=== PATIENT | male | born 1980 | race Caucasian/White ===

== ENCOUNTER 2022-10-18 06:10 | Observation (INO) ==
--- NOTE | 2022-10-11 15:05 | PAT Medication Instructions ---
Medication Instructions Date of Service October 11, 2022 Home Medications amlodipine 10 mg tablet 10 mg PO QAM empagliflozin 25 mg tablet (Jardiance) 25 mg PO QAM glipizide 10 mg tablet, extended release 24 hr 10 mg PO QAM losartan 50 mg tablet 50 mg PO QAM oxycodone-acetaminophen 5 mg-325 mg tablet (Percocet) 1 tab PO Q4H PRN Pain DO NOT take the morning of surgery glipizide 10 mg tablet, extended release 24 hr 10 mg PO QAM losartan 50 mg tablet 50 mg PO QAM Take morning of surgery With a small sip of water, OTHERWISE NOTHING TO EAT OR DRINK AFTER MIDNIGHT: amlodipine 10 mg tablet 10 mg PO QAM oxycodone-acetaminophen 5 mg-325 mg tablet (Percocet) 1 tab PO Q4H PRN Pain (if needed) Take evening before surgery oxycodone-acetaminophen 5 mg-325 mg tablet (Percocet) 1 tab PO Q4H PRN Pain (if needed) STOP taking 3 days before surgery empagliflozin 25 mg tablet (Jardiance) 25 mg PO QAM Other Notes If you have any questions please call us at [phone] or [phone] or [phone] or [phone]
--- NOTE | 2022-10-12 15:24 | Anesthesiology Consultation ---
Date of Service October 12, 2022 Assessment & Plan (1) Encounter for pre-operative examination: - COVID screening: Per assessment on 10/12: No known COVID-19 positive contacts or current COVID-19 related symptoms. Travel screen negative. Patient vaccinated. At surgeon discretion if preop Covid testing being done. - Check [facility] AM DOS Chart Review Chart Review: Acceptable Risk for Surgery and Patient seen in Pre Admission Testing Teaching & Discussion Pre-Anesthesia Teaching/Discussion Notes: Instructed NPO after midnight before surgery,except medications with 15 cc of water. Medication instructions provided according to the PAT guidelines. History Surgery Operation Date: 10/18/22 13:40 Proposed Procedures p C5-C7 Anterior Cervical Discectomy and Fusion, Spinal Cord Monitoring - Kevin Aguilar DO Height/Weight Height: 5 ft 11 in Weight: 101.7 kg Allergies Allergy/AdvReac Type Severity Reaction Status Date / Time Penicillins Allergy Hives Verified 10/11/22 13:29 Medications Home Medications Medication Instructions Recorded Confirmed Last Taken amlodipine 10 mg tablet 10 mg PO QAM 10/11/22 10/11/22 Unknown empagliflozin 25 mg tablet 25 mg PO QAM 10/11/22 10/11/22 Unknown (Jardiance) glipizide 10 mg tablet, extended 10 mg PO QAM 10/11/22 10/11/22 Unknown release 24 hr losartan 50 mg tablet 50 mg PO QAM 10/11/22 10/11/22 Unknown oxycodone-acetaminophen 5 mg-325 1 tab PO Q4H PRN Pain 10/11/22 10/11/22 Unknown mg tablet (Percocet) Past Medical History Medical History Diabetes mellitus, type 2 History of COVID-19 Most recent 07/2021; headache, fatigue > resolved Hx MRSA infection 2019 (dx PH junior, found in ear,) tx w/abx Hx of pancreatitis 07/2022, felt reaction to medication, no issues since Hypertension Exercise / Class Metabolic Activity II 4-5 Yardwork/Stairs/Walk up hill Past Surgical History Surgical History History of esophagogastroduodenoscopy (EGD) Hx laparoscopic cholecystectomy Hx of colonoscopy Hx of wisdom tooth extraction Past Anesthesia History No Hx of Anesthesia Complications and No Family Hx of Anesthesia Complications History of PONV No Hx of PONV and No Hx of Motion Sickness Social History Smoking Status: Current every day smoker tobacco type: cigarettes Smoking cigarettes per day: 10-12 cigs/day Do You Dip or Chew Tobacco: No Hx Alcohol Use: Yes alcohol intake frequency: holidays/special occasions only Hx Substance Use: No substance use type: does not use Review of Systems Patient denies chest pain, shortness of breath, dyspnea on exertion, fever, chills, cough, wheezing, palpitations. Physical Exam Vital Signs VITALS BP 130/88 P 79 TEMP 98.2 SP02 95%RA RESP 18 PHYSICAL Full cervical extension range of motion. Full TMJ range of motion. TMD 3 finger breaths Mallampati Score 3 Dentition: missing sides Lungs: clear throughout to auscultation Cardiac: regular rate and rhythm, no murmurs noted Spine: normal Carotid arteries: negative bruit Extremities: no edema Lab Results Anesthesia Preop Results Results Anesthesia Widget: WBC 11.51 K/ul (4.8-10.8) H 10/12/22 Hgb 17.8 g/dl (14.0-18.0) 10/12/22 Hct 49.8 % (40.1-51.0) 10/12/22 Plt 238 K/uL (130-400) 10/12/22 Na 135 mmol/L (136-145) L 10/12/22 K 3.5 mmol/L (3.5-5.1) 10/12/22 Cl 102 mmol/L (98-107) 10/12/22 CO2 26 mmol/L (21-32) 10/12/22 BUN 12 mg/dl (6-23) 10/12/22 Creat 0.81 mg/dl (0.6-1.4) 10/12/22 Glucose Level 89 mg/dl (70-99(Fasting)) 10/12/22 PT 10.3 Seconds (9.0-12.0) 10/12/22 PTT 30.1 Seconds (21.0-31.0) 10/12/22 INR 1.0 (0.9-1.1) 10/12/22 HA1c 7.9 % (4.5-5.6) H 10/12/22 Urine Color Yellow 10/12/22 Urine Appearance Clear (Clear) 10/12/22 Urine pH 6.5 (4.5-7.5) 10/12/22 Urine Specific [place] 1.029 (1.000-1.030) 10/12/22 Urine Protein Negative (Negative) 10/12/22 Urine Glucose (UA) 3+ (Negative) H 10/12/22 Urine Ketones Negative (Negative) 10/12/22 Urine Blood Negative (Negative) 10/12/22 Urine Nitrite Negative (Negative) 10/12/22 Urine Bilirubin Negative (Negative) 10/12/22 Urine Urobilinogen Negative (Negative) 10/12/22 Urine Leukocyte Esterase Negative (Negative) 10/12/22 Blood Type A Positive 10/12/22 Antibody Screen NEGATIVE 10/12/22 Testing Laboratory Results Surgeon's office made aware of elevated WBC/A1C* Electrocardiogram Date: 07/21/22 SR at 73bpm. Possible LAE. Chest X-Ray Date: 10/13/22 Findings: + NAD COVID-19 Risk Screen Screening Information COVID-19 Screen Date: 10/12/22 Exposure 21 Days Family/Household +COVID Last 21 Days: No Exposure 10 Days Any COVID Exposure Last 10 Days: No Symptoms Last 10 Days Experienced COVID Sx Last 10 Days: No + COVID 0-90 Days COVID + in Last 0-90 Days: No
[~2022-10-18 06:10] MED LIST: ACETAMINOPHEN 500 MG TAB PO SCH; CLINDAMYCIN/D5W 900 MG/50 ML BAG IV SCH; CeleBREX 200 MG CAP PO SCH; GABAPENTIN 900 MG DOSE PO SCH; LR 15ML/HR IV SCH
[2022-10-18] MEDS ORDERED: ceFAZolin 330 MG/ML 1 GM VIAL ONE (07:03)
[2022-10-18] MEDS ORDERED: ROCURONIUM BROMIDE 10 MG/ML 5 ML VIAL IV ONE (07:11)
[2022-10-18] MEDS ORDERED: fentaNYL citrate 100 MCG/2 ML VIAL ONE (07:11)
[2022-10-18] MEDS ORDERED: GLYCOPYRROLATE 0.2 MG/ML VIAL ONE (07:11)
[2022-10-18] MEDS ORDERED: LIDOCAINE 2% MPF LOCAL 5 ML VIAL INFIL ONE (07:11)
[2022-10-18] MEDS ORDERED: MIDAZOLAM HCL 1 MG/ML 2ML VIAL ONE (07:11)
[2022-10-18] MEDS ORDERED: DEXAMETHASONE SOD INJ 4 MG/ML VIAL ONE (07:11)
[2022-10-18] MEDS ORDERED: SUCCINYLCHOLINE CHLORIDE 20 MG/ML 10 ML VIAL IV ONE (07:11)
[2022-10-18] MEDS ORDERED: PROPOFOL IV EMULSION 10 MG/ML 20 ML VIAL IV ONE (07:11)
[2022-10-18] MEDS ORDERED: NEOSTIGMINE METHYLSULFATE 1 MG/ML 10ML VIAL ONE (07:11)
[2022-10-18] MEDS ORDERED: ONDANSETRON INJ 2 MG/ML 2 ML VIAL ONE ×2 (07:11→08:57)
--- NOTE | 2022-10-18 07:34 | History & Physical Bridge Note ---
Date of Service October 18, 2022 History & Physical Bridge Note I have examined the patient, reviewed the History & Physical and in the interval since the performance of the History & Physical I have noted the following changes of clinical significance: no changes noted
--- NOTE | 2022-10-18 07:35 | History & Physical Report ---
Date of Service October 18, 2022 Assessment & Plan (1) Cervical stenosis of spinal canal: Plan: C5-C7 anterior cervical discectomy and fusion History of Present Illness Chief Complaint: Neck and arm pain Primary Care Provider: Will Springer This is a 41-year-old male presents with chronic persistent neck and arm pain after failed course of nonoperative care is here for surgical invention. Allergies Allergy/AdvReac Type Severity Reaction Status Date / Time Penicillins Allergy Hives Verified 10/18/22 06:28 Home Medications Medication Instructions Recorded Confirmed Type amlodipine 10 mg tablet 10 mg PO QAM 10/11/22 10/18/22 History empagliflozin 25 mg tablet 25 mg PO QAM 10/11/22 10/18/22 History (Jardiance) glipizide 10 mg tablet, extended 10 mg PO QAM 10/11/22 10/18/22 History release 24 hr losartan 50 mg tablet 50 mg PO QAM 10/11/22 10/18/22 History oxycodone-acetaminophen 5 mg-325 1 tab PO Q4H PRN Pain 10/11/22 10/18/22 History mg tablet (Percocet) Past Med/Surg History Medical History Diabetes mellitus, type 2 History of COVID-19 Most recent 07/2021; headache, fatigue > resolved Hx MRSA infection 2019 (dx PH junior, found in ear,) tx w/abx Hx of pancreatitis 07/2022, felt reaction to medication, no issues since Hypertension Surgical History History of esophagogastroduodenoscopy (EGD) Hx laparoscopic cholecystectomy Hx of colonoscopy Hx of wisdom tooth extraction Social History Smoking Status: Current every day smoker Cigarettes Per Day: 10-12; Second Hand Exposure: No; Do You Dip or Chew Tobacco: No; Tobacco Cessation Education Requested by Patient: No Hx Alcohol Use: Yes Hx Substance Use: No Preferred Language: [place]orese Communication Ability: Effective Band Shover Required: No Beliefs That Will Affect Care: None Current Living Situation: Significant Other Other Information That Helps Us Care for You: No Feels Safe at Home: Yes Safety Concerns: Feels Safe At This Time Assistive Devices: None Physical Exam Physical Exam: Patient is alert and oriented Heart regular rhythm Lungs clear Results & Data Results & Data ([facility]) Vital Signs (Past 12 Hours) Vital Signs Temp Pulse Resp BP Pulse Ox O2 Del Method 10/18/22 06:35 36.5 C 97 H 20 149/105 H 98 Room Air
[2022-10-18] MEDS ORDERED: PROMETHAZINE HCL 12.5 MG in SODIUM CHLORIDE 0.9% 50 ML IV PRN (08:35)
[2022-10-18] MEDS ORDERED: ePHEDrine sulfate 50 MG/ML AMP IV PRN (08:35)
[2022-10-18] MEDS ORDERED: ONDANSETRON INJ 2 MG/ML 2 ML VIAL IV PRN (08:35)
[2022-10-18] MEDS ORDERED: ATROPINE SULFATE 0.1 MG/ML 10ML SYR IV PRN (08:35)
[2022-10-18] MEDS ORDERED: FLOSEAL HEMOSTATIC MATRIX 10ML TOP ONE (09:04)
--- NOTE | 2022-10-18 09:17 | Operative Report ---
Post Operative Report Pre & Post Diagnosis Operation Date: 10/18/22 07:45 Pre-Op Diagnosis: Cervical spinal stenosis with radiculopathy Post-Op Diagnosis: Same I identified the patient and participated in the time-out.: Yes Procedure Operation Date: 10/18/22 07:45 Actual Procedures #1 anterior cervical discectomy with bilateral foraminotomies C5-C6 C6-C7. #2 anterior cervical arthrodesis C5-C6 C6-C7. #3 placement of Spira 9 mm cage filled I factor at C5-C6 C6-C7. #4 application of K2 M plate and screws from C5-C7. Surgeon Kevin Aguilar, Water Registrar Fallon Santiago Estimated Blood Loss 10 Findings Consistent with Post-Op Diagnosis Specimens None Indications This is a 41-year-old male who presents to the emergency diagnosis of failed extensive course of nonoperative care is here for surgical invention. Description of Procedure Patient met with identified informed consent obtained. Patient was then taken to the operative suite underwent a patient placed in a supine position the Shivam table with head Mcneal head greenskeeper. All bony prominences well-padded eyes inspected to ensure no external pressure placed upon them. This point the anterior cervical spine was prepped and draped no sterile fashion. The assistance of fluoroscopy defy the C6 vertebral body and a transverse incision was placed on the right anterior aspect of the cervical spinal lines region. Blunt dissection with the assistance of bipolar cautery performed down to and exposing the anterior cervical spine from C5-C7. Self-retaining retractors placed. Then performed a complete discectomy of C5-C6 out to the uncovertebral's bilaterally. Adel distracting pins utilized to assist in v isualization. Removed all posterior annular fibers longitudinal ligament bilateral foraminotomies performed and a 9 mm spiral cage filled with I factor tapped in position. I then proceeded to C6-C7. Again complete discectomy performed out to the uncovertebral's bilaterally. Adel distracting pins again utilized. Removed all posterior fibers longitudinal ligament bilateral foraminotomy performed in the 9 mm spiral cage with I factor tapped in position. Distracting apparatus was removed all anterior osteophytes burred to smooth cortical surface and a K2 M plate and screws applied with the assistance of fluoroscopy. The incision was then copiously irrigated explored to ensure no damage to surrounding structures remaining bleeding. 10 round DEEP drain inserted. The incision was then closed with 2 Vicryl in the fascia and 4 Monocryl for fascial closure. Steri-Strip Steri-Strip placed. Patient awakened and taken to PACU in stable condition. Please note spinal cord monitoring was u tilized at the procedure no changes noted. Lastly spinal cord monitoring was utilized at the procedure no changes noted. Fallon Santiago was present at the entire procedure and while the patient positioning complex portions of the surgery and fascial closure. I attest to the content of the Intraoperative Record and any orders documented therein. Any exceptions are noted below.
--- NOTE | 2022-10-18 09:30 | Fluoroscopy Report ---
FL cervical 2-3V CLINICAL HISTORY: ACDF C5-7 COMPARISON STUDY: None. FLUOROSCOPY TIME: 15 seconds. FLUOROSCOPIC IMAGES: 3 FINDINGS: Fluoroscopy was provided during C5-C7 anterior discectomy and fusion. The hardware is intac t. Endotracheal tube is partially imaged. Surgical drain is in place. IMPRESSION: Fluoroscopy provided during C5-C7 anterior discectomy and fusion. ACT 112: Negative or not required by law. Electronically signed by: Pierre Jj M.D. 10/18/2022 9:29 AM
[2022-10-18] MEDS: fentaNYL citrate 100 MCG/2 ML VIAL IV PRN ×4 (09:38→10:00)
[2022-10-18] MEDS: HYDROmorphone INJ 2 MG/ML SYR/VIAL IV PRN ×2 (10:21→10:26)
[2022-10-18] MEDS ORDERED: dexAMETHasone 8 MG in SYRINGE 0 ML IV PRN (11:03)
[2022-10-18] MEDS ORDERED: PHARMACY GLYCEMIC MGMT CONSULT PRN (11:03)
[2022-10-18] MEDS ORDERED: HYDROmorphone INJ 0.5 MG/0.5 ML SYR IV PRN (11:03)
[2022-10-18] MEDS ORDERED: traMADol HCL 50 MG TABLET PO PRN ×2 (11:03)
[2022-10-18] MEDS ORDERED: RACEPINEPHRINE 2.25% NEBU SOLN 0.5 ML VIAL INH PRN (11:03)
[2022-10-18] MEDS ORDERED: FLUARIX QUADRIVALENT 0.5 ML SYR IM ONE (11:10)
--- NOTE | 2022-10-18 11:25 | Anesthesiology Progress Note ---
Date of Service October 18, 2022 Anesthesia Post Procedure Vital Signs Vital Signs: Temp Pulse Pulse Resp BP Pulse Ox O2 Del Method 10/18/22 11:15 37 C 76 16 147/85 H 95 Nasal Cannula 10/18/22 11:10 76 18 95 Nasal Cannula 10/18/22 11:00 37 C 83 16 130/84 94 Nasal Cannula 10/18/22 10:45 36.2 C L 67 12 136/94 94 Nasal Cannula 10/18/22 10:35 36.2 C L 70 12 124/80 94 Nasal Cannula 10/18/22 10:25 76 12 167/99 H 94 Nasal Cannula 10/18/22 10:15 36.4 C L 80 14 145/105 H 94 Nasal Cannula 10/18/22 10:05 78 20 137/103 H 93 Nasal Cannula 10/18/22 09:55 81 14 137/92 95 Oxymask 10/18/22 09:45 81 17 163/116 H 94 Oxymask 10/18/22 09:35 89 18 157/106 H 95 Oxymask 10/18/22 09:25 36.2 C L 96 H 18 150/100 H 94 Oxymask 10/18/22 06:35 36.5 C 97 H 20 149/105 H 98 Room Air O2 Flow Rate 10/18/22 11:15 10/18/22 11:10 2 10/18/22 11:00 2 10/18/22 10:45 2 10/18/22 10:35 2 10/18/22 10:25 2 10/18/22 10:15 2 10/18/22 10:05 2 10/18/22 09:55 6 10/18/22 09:45 6 10/18/22 09:35 6 10/18/22 09:25 6 10/18/22 06:35 Pain Intensity Posterior Neck: Pain Intensity: 6 Neck: Pain Intensity: 5 Transfer of Care Handoff Completed per policy Notes Mental Status: alert / awake / arousable and participated in evaluation Patient Amnestic to Procedure: Yes Nausea / Vomiting: adequately controlled Pain: adequately controlled Airway Patency, RR, SpO2: stable & adequate BP & HR: stable & adequate Hydration State: stable & adequate Anesthetic Complications: no major complications apparent
[2022-10-18] MEDS ORDERED: DEXTROSE 50% 50 ML SYRINGE IV PRN (11:55)
[2022-10-18] MEDS ORDERED: GLUCOSE 10 TAB/TUBE PO PRN (11:55)
[2022-10-18] MEDS ORDERED: GLUCAGON FOR INJ 1 MG VIAL SQ PRN (11:55)
[2022-10-18] MEDS ORDERED: GLUCOSE 40% GEL 15 GM TUBE PO PRN (11:55)
[2022-10-18] MEDS ORDERED: CARBOHYDRATES FOR HYPOGLYCEMIA PO PRN (11:55)
[2022-10-18] MEDS ORDERED: POLYETHYLENE (MIRALAX) 17 GM PACK PO PRN (11:57)
[2022-10-18] MEDS ORDERED: DOCUSATE SODIUM 100 MG CAP PO PRN (11:57)
--- NOTE | 2022-10-18 12:22 | Hospitalist Consultation ---
Date of Consultation October 18, 2022 Assessment & Plan (1) Cervical stenosis of spinal canal: POD #0 - ACDF C5-C7 by Dr. Aguilar - Pain control, DVT prophylaxis, and PT/OT per primary team - Labs in AM - Crackles at right base during exam this afternoon - discussed with pt the importance of using the incentive spirometer and reviewed appropriate use (2) Diabetes mellitus, type 2: Hold oral diabetic meds while admitted - BS[facility] ACHS - Recommend diabetic diet once advanced - Insulin sliding scale and basal (3) Hypertension: Continue outpatient meds Plan Pt seen and reviewed with collaborating physician, Dr. Bahena. Plane of care discussed and as outlined above. Thank you for this consultation. We will continue to follow the patient with you. [facility] team is available 30/05 via [employer]. Please don't hesitate to reach out with questions. Luna Alcantara PA-C Supervising Physician Co-Signing Physician Notes Patient is a 41-year-old male with history of diabetes mellitus, hypertension and other medical problems was consulted for postop medical management after having anterior cervical discectomy with bilateral foraminotomies, arthrodesis for cervical spinal stenosis with radiculopathy by Dr. Aguilar. Patient is doing well postoperatively. He denies any dysphagia, odynophagia, chest pain, shortness of breath, dizziness, nausea, abdominal pain. Pain at surgical site is controlled. On exam patient is well-built and nourished, no apparent distress, normocephalic atraumatic, EOMI, neck:+ Neck collar, drain, lungs are clear to auscultation, normal breath sounds, S1-S2, no murmur, no pedal edema, abdomen soft, nontender, normal bowel sounds, alert, awake, oriented, grossly no focal deficits. Pain control, activity, DVT prophylaxis and wound care as per primary team. Continue insulin while hospitalized for management of diabetes mellitus. Expectations have high blood glucose levels given steroid use. Monitor blood pressure and continue home antihypertensive. Monitor for postop anemia. Bowel regimen to prevent constipation. I personally reviewed the record. Patient is interviewed and examined at bedside. Patient's care is coordinated with Joelle Alcantara PA-C. Please refer to the documentation above for details of patient's presentation and for discussion of other issues. History of Present Illness Reason for Consultation: Post-operative Medical Management Requesting Physician: Dr. Kevin Aguilar Attending Physician: Kevin Aguilar, DO History of Present Illness This is a 41 y/o male with a PMH of HTN, DM2, medication-induced pancreatitis, and cervical spinal stenosis who underwent ACDF of C5-C7 today by Dr. Aguilar. We have been consulted to assist with post-operative medical management. Currently, pt's only complaint is significant post-operative pain, feels similar to pre-op pain but more severe. Denies numbness or tingling in hands and feet. Able to move UE and LE without issue. Throat feels dry but no pain or dysphagia. Denies chest pain, dyspnea, palpitations, N/V/D, visual changes. He does not routinely check his blood sugars at home but reports that he can tell when they are high (>200). No recent marked elevations. He did have an episode of pancreatitis earlier this fall related to a diabetic medication, which has since been discontinued. Allergies Allergy/AdvReac Type Severity Reaction Status Date / Time Penicillins Allergy Hives Verified 10/18/22 06:28 Home Medications Medication Instructions Recorded Confirmed Type amlodipine 10 mg tablet 10 mg PO QAM 10/11/22 10/18/22 History empagliflozin 25 mg tablet 25 mg PO QAM 10/11/22 10/18/22 History (Jardiance) glipizide 10 mg tablet, extended 10 mg PO QAM 10/11/22 10/18/22 History release 24 hr losartan 50 mg tablet 50 mg PO QAM 10/11/22 10/18/22 History oxycodone-acetaminophen 5 mg-325 1 tab PO Q4H PRN Pain 10/11/22 10/18/22 History mg tablet (Percocet) Patient History Medical History (Updated 10/18/22 @ 12:50 by Joelle Alcantara PA-C) Diabetes mellitus, type 2 History of COVID-19 Most recent 07/2021; headache, fatigue > resolved Hx MRSA infection 2019 (dx PH junior, found in ear,) tx w/abx Hx of pancreatitis 07/2022, felt reaction to medication, no issues since Hypertension Surgical History History of esophagogastroduodenoscopy (EGD) Hx laparoscopic cholecystectomy Hx of colonoscopy Hx of wisdom tooth extraction Family History Denies family history of Anesthesia complication Social History Smoking Status: Current every day smoker Cigarettes Per Day: 10-12; Second Hand Exposure: No; Do You Dip or Chew Tobacco: No; Tobacco Cessation Education Requested by Patient: No Hx Alcohol Use: Yes Hx Substance Use: No Preferred Language: Portuguese Communication Ability: Effective Hearing Examiner Required: No Beliefs That Will Affect Care: None Current Living Situation: Significant Other Other Information That Helps Us Care for You: No Feels Safe at Home: Yes Safety Concerns: Feels Safe At This Time Assistive Devices: None Review of Systems Review of Systems: All systems reviewed & are unremarkable except as noted in HPI & below Constitutional: no fever and no chills Eyes: no diplopia and no worsening vision Ear, Nose, Mouth, Throat: no sore throat and no dysphagia Respiratory: no cough and no dyspnea Cardiovascular: no chest pain, no palpitations and no syncope Gastrointestinal: no abdominal pain, no nausea, no vomiting and no diarrhea/loose stools Genitourinary: no hematuria Musculoskeletal: + neck pain Integumentary: no rash and no yellowing of the skin Neurologic: no tingling and no numbness Physical Exam Constitutional: well developed and well nourished; no acute distress Eyes: + anicteric sclerae Neck: hard plastic cervical collar in place Dressing with sanguinous drainage, drain in place Respiratory: no respiratory distress and no labored breathing Auscultation: + crackles (at right base - otherwise clear) Cardiovascular: Rate/Rhythm: regular rate and regular rhythm Vessels: dorsalis pedis pulses present and radial pulses present Extremities: no pedal edema Gastrointestinal (Abdomen): Inspection/Auscultation: normal bowel sounds; abdomen not distended Percussion/Palpation: abdomen soft; abdomen nontender Musculoskeletal: Extremities: no muscle atrophy, no cyanosis and no clubbing Skin: no jaundice Neurologic: moves all extremities; no focal motor deficits and not confused Psychiatric: A+Ox3, euthymic affect Results & Data Results & Data ([facility]) Vital Signs (Past 12 Hours) Vital Signs Temp Pulse Pulse Resp BP Pulse Ox O2 Del Method 10/18/22 12:00 36.5 C 77 16 143/92 H 97 Nasal Cannula 10/18/22 11:31 36.9 C 89 16 137/83 95 Nasal Cannula 10/18/22 11:15 37 C 76 16 147/85 H 95 Nasal Cannula 10/18/22 11:10 76 18 95 Nasal Cannula 10/18/22 11:00 37 C 83 16 130/84 94 Nasal Cannula 10/18/22 10:45 36.2 C L 67 12 136/94 94 Nasal Cannula 10/18/22 10:35 36.2 C L 70 12 124/80 94 Nasal Cannula 10/18/22 10:25 76 12 167/99 H 94 Nasal Cannula 10/18/22 10:15 36.4 C L 80 14 145/105 H 94 Nasal Cannula 10/18/22 10:05 78 20 137/103 H 93 Nasal Cannula 10/18/22 09:55 81 14 137/92 95 Oxymask 10/18/22 09:45 81 17 163/116 H 94 Oxymask 10/18/22 09:35 89 18 157/106 H 95 Oxymask 10/18/22 09:25 36.2 C L 96 H 18 150/100 H 94 Oxymask 10/18/22 06:35 36.5 C 97 H 20 149/105 H 98 Room Air O2 Flow Rate 10/18/22 12:00 2 10/18/22 11:31 2 10/18/22 11:15 10/18/22 11:10 2 10/18/22 11:00 2 10/18/22 10:45 2 10/18/22 10:35 2 10/18/22 10:25 2 10/18/22 10:15 2 10/18/22 10:05 2 10/18/22 09:55 6 10/18/22 09:45 6 10/18/22 09:35 6 10/18/22 09:25 6 10/18/22 06:35 Laboratory Results 10/18/22 10/18/22 10/18/22 06:25 09:28 12:07 POC Glucose 255 H 200 H 279 H SARS-CoV-2, RNA, NAAT 10/18/22 Unknown POC Glucose SARS-CoV-2, RNA, NAAT NEGATIVE Medications Administered Acetaminophen (Acetaminophen 500 Mg Tab) 1,000 mg PO PREOP HILDA Stop: 10/18/22 18:00 Last Admin: 10/18/22 06:54 Dose: 1,000 mg Documented By: JARED Celecoxib (Celebrex 200 Mg Cap) 200 mg PO PREOP HILDA Stop: 10/18/22 18:00 Last Admin: 10/18/22 06:54 Dose: 200 mg Documented By: GARRETTT Gabapentin (Gabapentin 900 Mg Dose) 900 mg PO PREOP HILDA Stop: 10/18/22 18:00 Last Admin: 10/18/22 06:54 Dose: 900 mg Documented By: GARRETTT Hydromorphone HCl (Hydromorphone Inj 0.5 Mg/0.5 Ml Syr) 0.5 mg IV Q3H PRN PRN Reason: Pain (6,7,8,9,10) Stop: 11/01/22 11:02 Last Admin: 10/18/22 12:30 Dose: 0.5 mg Documented By: ANIBAL Lactated Ringer's (Lr) 1,000 mls @ 15 mls/hr IV .Q24H HILDA Stop: 10/19/22 05:59 Last Infusion: 10/18/22 07:45 Dose: 0 mls/hr Documented By: [facility] Admin: 10/18/22 06:32 Dose: 15 mls/hr Documented By: JARED Clindamycin Phosphate (Cleocin/D5w) 900 mg in 50 mls @ 100 mls/hr IV PREOP HILDA; Protocol Stop: 10/18/22 18:00 Last Infusion: 10/18/22 11:22 Dose: 0 mls/hr Documented By: Admin: 10/18/22 07:45 Dose: 100 mls/hr Documented By: [id number] Discontinued Medications Cefazolin Sodium (Cefazolin 330 Mg/Ml 1 Gm Vial) Confirm Administered Dose 990 mg .ROUTE .STK-MED ONE Stop: 10/18/22 07:04 Last Admin: 10/18/22 08:33 Dose: 990 mg Documented By: KONG Fentanyl Citrate (Fentanyl Citrate 100 Mcg/2 Ml Vial) 50 mcg IV Q5M PRN PRN Reason: PACU Use Only-Pain Stop: 10/18/22 16:35 Last Admin: 10/18/22 10:00 Dose: 50 mcg Documented By: Admin: 10/18/22 09:54 Dose: 50 mcg Documented By: Admin: 10/18/22 09:43 Dose: 50 mcg Documented By: Admin: 10/18/22 09:38 Dose: 50 mcg Documented By: JOVANY Hydromorphone HCl (Hydromorphone Inj 2 Mg/Ml Syr/Vial) 0.5 mg IV Q5M PRN PRN Reason: PACU Use Only-Pain Stop: 10/18/22 16:35 Last Admin: 10/18/22 10:26 Dose: 0.5 mg Documented By: Admin: 10/18/22 10:21 Dose: 0.5 mg Documented By: RICARDO Miscellaneous ( Floseal Hemostatic Matrix 10ml) 10 ml TOP ONCE ONE Stop: 10/18/22 09:05 Last Admin: 10/18/22 09:07 Dose: 10 ml Documented By: KONG Ondansetron HCl (Ondansetron Inj 2 Mg/Ml 2 Ml Vial) 4 mg IV ONCE PRN PRN Reason: PACU Use Only-Nausea/Vomiting Stop: 10/18/22 16:35 Last Admin: 10/18/22 09:53 Dose: 4 mg Documented By: JOVANY
[2022-10-18] MEDS: HYDROmorphone INJ 0.5 MG/0.5 ML SYR IV PRN ×3 (12:30→21:09)
[2022-10-18] MEDS ORDERED: NovoLIN-N (NPH) PER UNIT CHARGE SQ ONE (13:30)
--- NOTE | 2022-10-18 13:38 | Pharmacy Report ---
Pharmacy Glycemic Short Note 2 - Date of Service October 18, 2022 - Glycemic Short BSG Results (Last 24 hours): 10/18/22 10/18/22 10/18/22 06:25 09:28 12:07 POC Glucose 255 H 200 H 279 H OUTPATIENT ANTIDIABETIC REGIMEN: * Glipizide ER 10 mg * Jardiance 25 mg * Rybelsus? ASSESSMENT: 10/19 * POD#1. TDD insulin yesterday was 62 mg/dl (of which basal was 30 units). Overnight accuchecks BSG was 120 - 146. FBSG this morning is 174 mg/dl - above goal. Gave NPH 30 units x1 this morning to cover for ongoing Dexamethsone IV. Continued Novolog parameters from yesterday. 10/18 * Heath Florentino is a 41 yr old male s/p cervical spinal stenosis. T2DM (A1c 7.9 - 10/12/22) who received dexamethasone 4mg IV x 1 and will be receiving 6mg IV starting 10/19. Ordered T2DM diet and Post-op BSG is 279mg/dl. Will administer NPH 30 units x 1 this afternoon with Novolog and Overnight accuchecks PLAN FOR INPATIENT GLYCEMIC CONTROL: * Hold outpatient oral diabetes medications * Basal insulin * NPH 30 units SQ X 1 * Bolus insulin * NovoLog per scale ACHS or Q6hrs while NPO * Goal Range: Low 110 mg/dL - High 140 mg/dL * Correction Factor: 15 mg/dL/unit * Nutritional / Prandial insulin per carb ratio of 1 unit per 5 grams CHO consumed
[2022-10-18] MEDS: INSULIN ASPART PER UNIT SC SCH ×3 (14:15→21:09)
[2022-10-18] MEDS: oxyCODONE HCL IR 5 MG TAB (IMMEDIATE RELEASE) PO PRN ×3 (14:18→23:19)
[2022-10-18] MEDS: NICOTINE 21 MG/24 HR TDSY TD SCH (15:13)
[2022-10-18] MEDS ORDERED: INSULIN ASPART PER UNIT SC SCH (16:30)
[2022-10-18] MEDS ORDERED: LANTUS PER UNIT CHARGE SQ SCH (21:00)
[2022-10-18] MEDS ORDERED: ALUMINUM/MAGNESIUM/SIMETH (MAALOX MAX) 30 ML UDC PO STA (23:30)
[2022-10-19] MEDS ORDERED: INSULIN ASPART PER UNIT SC SCH
[2022-10-19] MEDS ORDERED: INSULIN ASPART PER UNIT SC ONE
[2022-10-19] MEDS: oxyCODONE HCL IR 5 MG TAB (IMMEDIATE RELEASE) PO PRN ×3 (04:06→12:52)
--- NOTE | 2022-10-19 08:12 | Discharge Summary ---
Date of Service October 19, 2022 Admission HPI Per Admitting Provider This is a 41-year-old male presents with chronic persistent neck and arm pain after failed course of nonoperative care is here for surgical invention. Principal Diagnosis Cervical spinal stenosis or nucleus pulposus with radiculopathy Discharge Data Allergies Allergy/AdvReac Type Severity Reaction Status Date / Time Penicillins Allergy Hives Verified 10/18/22 06:28 Consultations 10/18/22 11:03 Consult Hospitalist Routine Procedures Performed Operation Date: 10/18/22 07:45 Actual Procedures p C5-C7 Anterior Cervical Discectomy and Fusion, Spinal Cord Monitoring(Not Applicable) - Kevin Aguilar DO Ordered Studies 10/18/22 07:45 FL cervical 2-3V Routine Hospital Course (1) Cervical stenosis of spinal canal: Patient 1 anterior cervical discectomy and fusion tolerated this well was taken to orthopedic for postoperative. Postop day #1 his arm symptoms are markedly improved swallowing well no hoarseness. DEEP drain decreasing probably. Safely discharged home. Discharge orders instructions from the chart for further view. Total Time Total Time Spent Total Time Spent (In Minutes): 20 minutes Discharge Plan Discharge Items Patient Disposition: Home - Self-Care Reason For Visit: Spinal Stenosis, Cervical Region Discharge Diagnosis: Cervical spinal stenosis with radiculopathy Activity: As commented below Non-emergency contact: Primary Care Provider Call non-emergency contact if: you have any medication questions Follow-up/Referrals: Will Springer [Primary Care Provider] - Diet: Regular Addtl Attending Provider Instructions: ACTIVITY RECOMMENDATIONS: SELF CARE INSTRUCTIONS AFTER CERVICAL FUSIONS 1. No smoking. Smoking drastically decreases the chance of a solid fusion. 2. No bending, lifting more than 5 pounds, or twisting (roll like a log when turning in bed). 3. You may shower 3 days after surgery. Thoroughly dry wound. Do not soak in the tub. 4. Cervical collar: Must be worn at all times including sleeping. You may remove the brace only to bath, eat and if you are sitting in a recliner. 5. Please walk as much as you can for exercise. Gradually increase the distance that you walk as your endurance increases. SPECIAL CARE INSTRUCTIONS: VERY IMPORTANT TO READ AND REVIEW A. Do not take any anti-inflammatory medications (i.e. Indocin, Advil, Aspirin, Naprosyn, Aleve, Motrin, etc.) as these may inhibit the chance of a solid fusion. Tylenol is okay to take. B. Your surgical incision has been closed with a cosmetic suture under the skin that will dissolve in about 6 weeks. In 14 days, you can use a pair of clean scissors and cut the suture that is left outside of the skin at the ends of your incision. C. Complications are uncommon, but please contact us if you have any signs or symptoms of: 1. wound infection (fever higher than 102.5 degrees F, redness, separation of wound, drainage, or increasing pain from the incision) 2. blood clots in legs (pain, swelling, redness and warmth in legs) 3. urinary tract infection (fever higher than 102.5 degrees, burning upon urination or increased frequency of urination) 4. nerve problems (inability to walk on your toes or heels, numbness, loss of bowel or bladder control) 5. any other symptoms that concern you. D. Please call the office at if you have any concerns or questions about your operation or recovery. MANAGING PAIN AFTER SPINAL SURGERY 1. Narcotic medication is intended for short-term use and will be provided for surgical pain. Surgical pain usually lasts for a period of 4-6 weeks. Narcotic medication includes Percocet, Vicodin, Darvocet, Tylenol #3 or Lortab. 2. Longer-term pain is more appropriately treated with non-narcotic medication such as Tylenol ES. 3. Muscle spasm is not appropriately treated with narcotics. Muscle relaxers such as Soma, Flexeril or Skelaxin can be used along with Tylenol ES. 4. Remember that we all live with some "aches and pains". This is not unusual or uncommon after an injury or as we get older. 5. We will provide appropriate medication within the normal guidelines of their prescribed use. We will also be very cautious and aware of potential abuse and extended duration of patients' medication needs. 6. Please allow 2-3 days to process refills. Prescriptions will not be mailed but must be picked up at the office. FOLLOW UP VISIT: Keep your scheduled follow-up appointment. Any questions, please call the office at . Pending Studies at Discharge: No Stand-Alone Forms: My [facility], Smoking Cessation Medications and DC Order Prescriptions: New oxycodone 5 mg tablet 5 mg PO Q6H PRN (Reason: pain, severe) Qty: 30 0RF tramadol 50 mg tablet 50 mg PO Q6H PRN (Reason: pain, moderate) Qty: 30 0RF Continued losartan 50 mg Tablet 50 mg PO QAM glipizide 10 mg Tablet Extended Release 24hr 10 mg PO QAM oxycodone-acetaminophen [Percocet] 5-325 mg Tablet 1 tab PO Q4H PRN (Reason: Pain) amlodipine 10 mg Tablet 10 mg PO QAM Jardiance 25 mg Tablet 25 mg PO QAM Discharge Orders: Discharge Order (Routine); Ordered 10/19/22 Ordered By: Kevin Aguilar Admission Data Admit Date/Time: 10/18/22 09:20 Attending Provider: Kevin Aguilar Admit Provider: Kevin Aguilar Primary Care Provider: Will Springer Other Providers: Chanda Colón ; Jaswinder Bahena
[2022-10-19 08:31] LABS: Basophils # (auto) 0.04 K/uL (0-0.2); Basophils % (auto) 0.2 %; Eosinophils # (auto) 0.06 K/uL (0-0.50); Eosinophils % (auto) 0.3 %; Hemoglobin 16.9 g/dl (14.0-18.0); Immature Granulocytes # (auto) 0.07 K/uL (0.00-0.02); Immature Granulocytes % (auto) 0.4 %; Lymphocytes # (auto) 3.44 K/uL (1.2-3.4); Lymphocytes % (auto) 19.2 %; Mean Corpuscular Hemoglobin 30.3 pg (25.0-34.0); Mean Corpuscular Hgb Conc 35.2 g/dL (32.0-36.0); Mean Platelet Volume 11.3 fL (9.4-12.4); Monocytes # (auto) 1.22 K/uL (0.24-0.82); Monocytes % (auto) 6.8 %; Neutrophils # (auto) 13.11 K/uL (1.4-6.5); Neutrophils % (auto) 73.1 %; Platelet Count 238 K/uL (130-400); RDW Coefficient of Variation 12.1 % (11.5-14.5); Red Blood Count 5.58 M/uL (4.63-6.08); White Blood Count 17.94 K/ul (4.8-10.8)
[2022-10-19] MEDS: INSULIN ASPART PER UNIT SC SCH ×2 (08:42→12:41)
[2022-10-19] MEDS: NICOTINE 21 MG/24 HR TDSY TD SCH (08:44)
[2022-10-19] MEDS ORDERED: LOSARTAN POTASSIUM 50 MG TAB PO SCH (09:00)
[2022-10-19] MEDS ORDERED: dexAMETHasone 6 MG in SYRINGE 0 ML IV SCH (09:00)
[2022-10-19] MEDS ORDERED: NovoLIN-N (NPH) PER UNIT CHARGE SQ ONE (09:00)
[2022-10-19] MEDS ORDERED: FAMOTIDINE 20 MG TAB PO SCH ×2 (09:00→21:00)
[2022-10-19] MEDS ORDERED: amLODIPine BESYLATE 5 MG TAB PO SCH (09:00)
[2022-10-19] MEDS ORDERED: EMPAGLIFLOZIN 25 MG TAB PO SCH (09:00)
[2022-10-19] MEDS ORDERED: GLIPIZIDE 10 MG PO SCH (09:00)
[2022-10-19 09:02] LABS: BUN Creatinine Ratio 13.5 (10-20); Calcium 9.1 mg/dl (8.5-10.1); Creatinine Clr Calc Pharmacy 156.2 ml/min; Est GFR (African American) 131.9 ml/min; Est GFR (Non-African American) 113.8 ml/min; Potassium 3.8 mmol/L (3.5-5.1)
[2022-10-19] MEDS ORDERED: ALUMINUM/MAGNESIUM/SIMETH (MAALOX MAX) 30 ML UDC PO PRN (10:38)
[2022-10-19] MEDS ORDERED: PANTOprazole 40 MG TAB PO SCH (10:45)
--- NOTE | 2022-10-19 11:20 | Hospitalist Progress Note ---
Date of Service October 19, 2022 Assessment & Plan (1) Cervical stenosis of spinal canal: Plan: Cervical spinal stenosis with radiculopathy S/P ACDF C5-C7 by Dr. Aguilar on 10/18/22 - Pain control, DVT prophylaxis as per primary team Monitor for postop anemia Continue bowel regimen to prevent constipation Advised to follow-up with PCP upon discharge PT/OT (2) Diabetes mellitus, type 2: Plan: Hold oral diabetic meds while admitted - BSG ACHS - Diabetic diet - Insulin sliding scale and basal (3) Hypertension: Plan: On losartan, amlodipine BP elevated likely secondary to steroids, Pain Plan CODE STATUS Full code Disposition As per primary team Admission and Anticipated Discharge Date Admission Date: October 18, 2022 Subjective Patient is seen and examined at bedside States having heartburn earlier today Neck pain at surgical site is controlled Denies any chest pain, dyspnea, dizziness, nausea, abdominal pain Offers no other complaints + Flatus, no bowel movement yet Review of Systems Review of Systems: All systems reviewed & are unremarkable except as noted in Subjective Physical Exam Physical Exam: Physical Exam: Vitals signs as noted above General Appearance:Moderately built and nourished, no apparent distress Head: normocephalic, Atraumatic Eyes: normal inspection, EOMI Neck: supple, Trachea midline, +Collar, +Drain Respiratory/Chest: Normal breath sounds, CTA, No accessory muscle use Cardiovascular: S1, S2, No murmur Abdomen/GI:Soft, Non tender, Bowel sounds present Extremities/Musculoskeletal:normal inspection, no edema Neurologic/Psych:AAOX3, grossly no focal neurological deficits Skin: normal color, warm Results & Data Results & Data ([facility]) Vital Signs (Past 12 Hours) Vital Signs Temp Pulse Resp BP BP Pulse Ox O2 Del Method 10/19/22 08:00 36.9 C 80 16 153/99 H 97 Room Air 10/19/22 07:03 75 18 100 Room Air 10/19/22 02:10 36.8 C 77 15 126/81 98 Room Air 10/19/22 06:20 36.8 C 79 18 172/105 H 97 Room Air 10/19/22 04:00 36.8 C 80 14 157/72 H 96 Room Air 10/19/22 03:42 78 18 96 Room Air Laboratory Results Short CBC 10/19/22 Range/Units 07:45 WBC 17.94 H (4.8-10.8) K/ul Hgb 16.9 (14.0-18.0) g/dl Hct 48.0 (40.1-51.0) % Plt Count 238 (130-400) K/uL [facility] 10/19/22 07:45 Sodium 133 L Potassium 3.8 Chloride 99 Carbon Dioxide 27 BUN 10 Creatinine 0.74 Glucose 163 H Calcium 9.1
== END 2022-10-19 13:17 | disposition home or self-care (01) ==
LOC: ASU 06:10 → INTOOBSV 09:20 → 3E 09:20